=== PATIENT | female | born 1980 ===

== ENCOUNTER 2019-03-23 00:38 | Emergency (ER) | payer OTHER ==
[~2019-03-23] VITALS: Ht 162.6 cm; Wt 62.6 kg
[~2019-03-23 00:38] MED LIST: AUGMENTIN1 TAB.CHE2; NIFE60TA3 PO
[2019-03-23] MEDS ORDERED: DICLOFENAC SODI50 MG PO (02:05)
[2019-03-23] MEDS ORDERED: NORFLEX100MG PO (02:05)
== END 2019-03-23 02:18 | disposition home or self-care (01) ==
LOC: ER 00:38
DX: M62.838 Other muscle spasm (principal)

== ENCOUNTER 2022-03-06 19:42 | Emergency (ER) | payer OTHER ==
[~2022-03-06] VITALS: Ht 160 cm; Wt 56.7 kg
[~2022-03-06 19:42] MED LIST changes: +DICLOFENAC SODI50 MG PO; +NORFLEX100MG PO
== END 2022-03-06 22:08 | disposition home or self-care (01) ==
LOC: ER 19:42
DX: S69.92XA Unspecified injury of left wrist, hand and finger(s), initial encounter (principal); W18.30XA Fall on same level, unspecified, initial encounter; Y93.9 Activity, unspecified; Y92.9 Unspecified place or not applicable; Y99.9 Unspecified external cause status

== ENCOUNTER 2024-10-03 14:40 | Outpatient (CLI) | payer OTHER | END 2024-10-03 14:50 | disposition home or self-care (01) | LOC: MRI 14:40 | PROVIDERS: ATTEND Physical Medicine & Rehabilitation | DX: M25.561 Pain in right knee (principal) | CPT/HCPCS: 73721 ==